=== PATIENT | female | born 1995 | race Two or more races ===

== ENCOUNTER 2016-04-29 21:43 | Emergency (ER) | payer BC, MEDICAID ==
[2016-04-29 21:52] VITALS: TEMP 99; BMI 28.3
[2016-04-29] MEDS ORDERED: ONDANSETRON HCL 4 MG/2 ML VIAL IV ONE (22:01)
[2016-04-29] MEDS ORDERED: MORPHINE 4 MG/ML INJECTION IV ONE (22:01)
[2016-04-29] MEDS ORDERED: NS 1,000 ML IV ONE (22:01)
[2016-04-29 22:09] LABS: AUTOMATED BASOPHIL 1.4 % (0-2); AUTOMATED LYMPH 41.9 % (17-44); AUTOMATED MONOCYTE 5.9 % (3-10); AUTOMATED NEUTROPHIL 48.8 % (45-76); MPV 8.5 fL (7.4-10.4)
[2016-04-29 22:21] LABS: RBC/URINE TNTC (0-5); WBC/URINE TNTC (0-5)
[2016-04-29 22:22] LABS: LEUKOCYTES/URINE 2+ (NEGATIVE); NITRITE/URINE NEG (NEGATIVE); URINE OCCULT BLOOD NEG (NEG/TRACE)
[2016-04-29] MEDS ORDERED: CEFTRIAXONE 1 GM in D5W 100 ML IV ONE (22:46)
[2016-04-29] MEDS ORDERED: Pharmacy Review for Metformin - IV Contrast Given SCH (23:00)
[2016-04-29 23:05] LABS: BLOOD UREA NITROGEN 13 MG/DL (7-17); CALC CORRECTED 9.6 MG/DL (8.4-10.2); CALCIUM 9.2 MG/DL (8.4-10.2); CALCULATED OSMOLALITY 265 MOs/Kg (270-290); CHLORIDE 102 mEq/L (98-107); GLUCOSE 88 MG/DL (70-99); SODIUM LEVEL 138 mEq/L (137-146); TOTAL PROTEIN 6.8 G/DL (6.3-8.2)
--- NOTE | 2016-04-29 23:10 | EDPRACDOC ---
- General Information Chief Complaint: Abdominal Pain Stated Complaint: ABD PAIN Time Seen by Provider: 04/29/16 21:57 Information Source: Patient Mode Of Arrival: Ambulance Home Medications: Home Medications Pnv Comb 45/Iron Cb/FA/Dss/Dha [Citranatal 90 Dha Pack] 1 each PO DAILY Hydrocodone Bit/Acetaminophen [Hydrocodon-Acetaminophen 5-325] 1 - 2 tab PO Q4H PRN #30 tab 04/03/16 Ibuprofen Tablet [Motrin] 800 mg PO TID #30 tab 04/03/16 Nitrofurantoin [Macrobid] 100 mg PO BID #14 cap 04/29/16 Ondansetron [Zofran Odt] 4 mg PO Q6H PRN #20 tab.rapdis 04/29/16 Oxycodone Immediate Release [Oxycodone Immediate Release (OxyIR)] 5 mg PO Q6H PRN #20 tab 04/29/16 Allergies/Adverse Reactions: Allergies Allergy/AdvReac Type Severity Reaction Status Date / Time No Known Allergies Allergy Unverified 04/03/16 03:02 - History of Present Illness Onset: just [employer] HPI: PT PRESENTS WITH EPIGASTRIC AND RUQ PAIN THAT BEGAN AFTER EATING [employer]. PT IS 4 WEEKS POST . STATES SHE HAS NEVER HAS PAIN LIKE THIS IN THE PAST. PT STATES SHE HAS HAD SEVERAL EPISODES OF VOMITING. DENIES FEVER, CHILLS OR DIARRHEA. Pain Location: Reports: Epigastric, RUQ Pain Context: Reports: Spontaneous, After Eating Pain Severity: Moderate Pain Quality: Reports: Sharp, Stabbing Pain Radiation: Reports: No Radiation Last Menstrual Period: not since giving : No Blood Type: O+ Adult Abdominal History: Denies: Abdominal Surgery, Urolithiasis, Bowel Obstruction, Similar Pain (dx) Female Abdominal History: Reports: UTI Modifying Factors: improves with: Nothing Female Associated Signs & Symptoms: Reports: Nausea, Vomiting Oral Intake: Normal Urinary Output: Normal - Treatment Prior to ED Arrival Reported Medications/Treatment [employer] Treated With Medication [employer] YES Medications [employer] (Medication/ tylenol 4 hours ago Dose/Time) EMS Treatment BLS IV Yes ED Past Medical History - History Reviewed Yes Nurses notes reviewed and agree except as marked - Patient Medical History GI/ History: Reports: Urinary Tract Infection Psychological History: Denies: Substance Use Disorder Systemic History: Reports: Anemia. Denies: Lupus Surgical History: Denies: Hysterectomy - Family Medical History Reports: Diabetes (GRANDPARENT), Cancer (MOM). Denies: Hypertension, Stroke, Cardiac Disorders - Social Medical History Smoking Status: Never smoker Social History: Denies: Amphetamine Use, Barbiturate Use, Benzodiazipine Use, Cocaine Use, Heroin Use, Marijuana Use, Methadone Use, MDMA (Ecstasy) Use, Substance Use Disorder EDM Review of Systems - Review of Systems ROS Negative Except as Marked: Yes All systems reviewed and were negative except as marked - Physical Exam Constitutional: Alert (PT APPEARS UNCOMFORTABLE) Oriented to: Time, Person, Place Last recorded Vital Signs: Last Vital Signs Temp 99.0 F 04/29/16 21:47 Pulse 72 04/29/16 23:04 Resp 18 04/29/16 23:04 BP 105/64 04/29/16 23:04 Pulse Ox 99 04/29/16 23:04 Oxygen Pulse Oxygen Saturation 99 O2 Device Oxygen Flow Rate Fraction of Inspired Oxygen ( FIO2) - HEENT Head: Normal ( normocephalic) Eye Exam: Normal (PERRL, EOMI, Sclera white) Oropharynx: Normal (Pharynx:Moist without exudate,Gums-no swelling) Nose: No Symptoms Reported (septum midline) Neck: Normal (FROM, trachea at midline) - Respiratory/Cardiovascular Respiratory: Normal - CTA (BBS clear to auscultation without adventitious sounds ) Cardiovascular: Normal (RRR without murmur, gallop or rub) - GI Auscultation: Normal (NABS) Palpation: Normal (Soft,No rebound or guarding, non distended) Tenderness: Moderate, RUQ, Epigastric Webster's Sign: Negative Rectal Exam: Deferred - Musculoskeletal Back: Normal (Non-Tender) Extremities: Normal (Normal tone, Pulses 2+ No cyanosis or edema, FROM) - Integumentary Skin: Normal, Warm, Dry Lymphatics: Normal (no adenopathy) - Neurologic Memory Impaired: Normal Motor Function: Normal (Normal tone, Pulses 2+ No cyanosis or edema, FROM) Cranial Nerve: Normal (CN II-X11 intact sensation, strength 5/5) Cerebellar: Normal Mood Description: Normal Perception: Normal - Differential Diagnosis Cholecystitis, Cholelithiasis, UTI - Results All Results Reviewed and Normal except as Highlighted below: Yes 04/29/16 21:55 04/29/16 22:45 WBC 11.8 xk/uL (3.8-10.8) H 04/29/16 21:55 RBC 5.17 xM/uL (4.20-5.40) 04/29/16 21:55 Hgb 14.6 g/dL (12.0-16.0) 04/29/16 21:55 Hct 44.9 % (36-47) 04/29/16 21:55 MCV 87 fL (81-99) 04/29/16 21:55 MCH 28.2 pg (27-32) 04/29/16 21:55 MCHC 32.4 g/dl (33-36) L 04/29/16 21:55 RDW 16.6 % (11.5-14.5) H 04/29/16 21:55 Plt Count 305 xk/uL (130-400) 04/29/16 21:55 MPV 8.5 fL (7.4-10.4) 04/29/16 21:55 Neut % (Auto) 48.8 % (45-76) 04/29/16 21:55 Lymph % (Auto) 41.9 % (17-44) 04/29/16 21:55 [place] % (Auto) 5.9 % (3-10) 04/29/16 21:55 Eos % (Auto) 2.0 % (0-5) 04/29/16 21:55 Baso % (Auto) 1.4 % (0-2) 04/29/16 21:55 Absolute Neuts (auto) 5.66 xk/uL (1.7-8.2) 04/29/16 21:55 Absolute Lymphs (auto) 4.84 xk/uL (0.65-4.75) H 04/29/16 21:55 Sodium 138 mEq/L (137-146) 04/29/16 22:45 Potassium 4.0 mEq/L (3.5-5.1) 04/29/16 22:45 Chloride 102 mEq/L (98-107) 04/29/16 22:45 Carbon Dioxide 25 mMOL/L (22-33) 04/29/16 22:45 Anion Gap 15 mEq/L (8-16) 04/29/16 22:45 BUN 13 MG/DL (7-17) 04/29/16 22:45 Creatinine 0.70 MG/DL (0.52-1.04) 04/29/16 22:45 Estimated GFR (MDRD) > 60 mL/min (>=60) 04/29/16 22:45 Glucose 88 MG/DL (70-99) 04/29/16 22:45 Calculated Osmolality 265 MOs/Kg (270-290) L 04/29/16 22:45 Calcium 9.2 MG/DL (8.4-10.2) 04/29/16 22:45 Corrected Calcium 9.6 MG/DL (8.4-10.2) 04/29/16 22:45 Total Bilirubin 0.6 MG/DL (0.2-1.3) 04/29/16 22:45 AST 71 IU/L (14-36) H 04/29/16 22:45 ALT 38 IU/L (9-52) 04/29/16 22:45 Alkaline Phosphatase 107 IU/L (38-126) 04/29/16 22:45 Total Protein 6.8 G/DL (6.3-8.2) 04/29/16 22:45 Albumin 3.6 G/DL (3.5-5.0) 04/29/16 22:45 Lipase 59 U/L (23-300) 04/29/16 22:45 Urine Color Yellow 04/29/16 22:10 Urine Clarity Cldy 04/29/16 22:10 Urine pH 6.0 (5.0-8.0) 04/29/16 22:10 Ur Specific [place] 1.010 (1.003-1.035) 04/29/16 22:10 Urine Protein Neg (NEG/TRACE) 04/29/16 22:10 Urine Glucose (UA) Neg (NEGATIVE) 04/29/16 22:10 Urine Ketones Neg (NEGATIVE) 04/29/16 22:10 Urine Occult Blood Neg (NEG/TRACE) 04/29/16 22:10 Urine Nitrite Neg (NEGATIVE) 04/29/16 22:10 Urine Bilirubin Neg (NEGATIVE) 04/29/16 22:10 Urine Urobilinogen 2 MG/DL (0-1) H 04/29/16 22:10 Ur Leukocyte Esterase 2+ (NEGATIVE) H 04/29/16 22:10 Urine RBC Tntc (0-5) H 04/29/16 22:10 Urine WBC Tntc (0-5) H 04/29/16 22:10 Ur Epithelial Cells 4+ 04/29/16 22:10 Urine Bacteria 1+ (NEG/FEW) H 04/29/16 22:10 Urine Mucus Occ (NEG/OCC) 04/29/16 22:10 Lab Results 04/29/16 04/29/16 04/29/16 22:45 22:10 21:55 WBC 11.8 H RBC 5.17 Hgb 14.6 Hct 44.9 MCV 87 MCH 28.2 MCHC 32.4 L RDW 16.6 H Plt Count 305 MPV 8.5 Neut % (Auto) 48.8 Lymph % (Auto) 41.9 [place] % (Auto) 5.9 Eos % (Auto) 2.0 Baso % (Auto) 1.4 Absolute Neuts (auto) 5.66 Absolute Lymphs (auto) 4.84 H Sodium 138 Potassium 4.0 Chloride 102 Carbon Dioxide 25 Anion Gap 15 BUN 13 Creatinine 0.70 Estimated GFR (MDRD) > 60 Glucose 88 Calculated Osmolality 265 L Calcium 9.2 Corrected Calcium 9.6 Total Bilirubin 0.6 AST 71 H ALT 38 Alkaline Phosphatase 107 Total Protein 6.8 Albumin 3.6 Lipase 59 Urine Color Yellow Urine Clarity Cldy Urine pH 6.0 Ur Specific [place] 1.010 Urine Protein Neg Urine Glucose (UA) Neg Urine Ketones Neg Urine Occult Blood Neg Urine Nitrite Neg Urine Bilirubin Neg Urine Urobilinogen 2 H Ur Leukocyte Esterase 2+ H Urine RBC Tntc H Urine WBC Tntc H Ur Epithelial Cells 4+ Urine Bacteria 1+ H Urine Mucus Occ Decision Time to Discharge: 23:32 - Departure Disposition: Home Condition: Stable Final Diagnosis: Cholelithiasis Qualifiers: Cholelithiasis location: gallbladder Cholecystitis presence: without cholecystitis Biliary obstruction: without biliary obstruction Qualified Code(s) : K80.20 - Calculus of gallbladder without cholecystitis without obstruction Instructions: Cholelithiasis Education/Counseling Given To: Patient Education/Counseling Given Regarding: Diagnosis, Treatment, Prognosis, Follow Up Referrals: Kevin Cotto MD [Staff Physician] - One Week Perez Travis MD [Staff Physician] - One Week Prescriptions: Nitrofurantoin [Macrobid] 100 mg PO BID #14 cap Ondansetron [Zofran Odt] 4 mg PO Q6H PRN #20 tab.rapdis PRN Reason: Nausea/Vomiting Oxycodone Immediate Release [Oxycodone Immediate Release (OxyIR)] 5 mg PO Q6H PRN #20 tab PRN Reason: Pain Additional Instructions: INCREASE FLUID INTAKE. FOLLOW UP WITH PRIMARY CARE PROVIDER NEXT WEEK. TAKE ALL ANTIBIOTICS PRESCRIBED. RETURN TO THE ED FOR WORSENING SYMPTOMS OR CONCERNS. MAKE A FOLLOW UP APPOINTMENT WITH SURGEON
--- NOTE | 2016-04-29 23:13 | DIRPT ---
CLINICAL DATA: Acute onset of upper quadrant abdominal pain and epigastric pain, with nausea. Mild leukocytosis. Four weeks . Initial encounter. EXAM: CT ABDOMEN AND PELVIS WITH CONTRAST TECHNIQUE: Multidetector CT imaging of the abdomen and pelvis was performed using the standard protocol following bolus administration of intravenous contrast. CONTRAST: 100 mL of Isovue 370 IV contrast COMPARISON: None. FINDINGS: The visualized lung bases are clear. The liver and spleen are unremarkable in appearance. Small stones are noted dependently within the gallbladder. The gallbladder is slightly distended but otherwise unremarkable. The common bile duct remains normal in caliber. Trace prominence of the intrahepatic biliary ducts likely remains within normal limits. The pancreas and adrenal glands are unremarkable. The kidneys are unremarkable in appearance. There is no evidence of hydronephrosis. No renal or ureteral stones are seen. No perinephric stranding is appreciated. No free fluid is identified. The small bowel is unremarkable in appearance. The stomach is within normal limits. No acute vascular abnormalities are seen. The appendix is normal in caliber, without evidence of appendicitis. The colon is unremarkable in appearance. The bladder is decompressed and not well assessed. The uterus is grossly unremarkable in appearance. The ovaries are relatively symmetric. No suspicious adnexal masses are seen. No inguinal lymphadenopathy is seen. No acute osseous abnormalities are identified. IMPRESSION: 1. No acute abnormality seen within the abdomen or pelvis. 2. Cholelithiasis. Gallbladder slightly distended but otherwise unremarkable. Electronically Signed By: Pb Fuentes M.D. On: 04/29/2016 23:10
[2016-04-30 00:14] VITALS: BP 117/57; PULSE 74
== END 2016-04-30 00:10 | disposition home or self-care (01) ==
LOC: ED 21:43
DX: K80.20 Calculus of gallbladder without cholecystitis without obstruction (principal); R10.13 Epigastric pain; R10.11 Right upper quadrant pain
CPT/HCPCS: 36415; 74177; 80053; 81001; 83690; 85025; 96361; 96365; 96375; 99284; A9698; J0696; J2270; J2405; J7060